=== PATIENT | female | born 1980 | race Caucasian/White ===

== ENCOUNTER → 2020-12-05 10:06 | Outpatient (BNVA) | payer OTHER, SELFPAY | PROVIDERS: Family Provider Nurse Practitioner Family; PCP Nurse Practitioner Family; Visit Provider Nurse Practitioner Family | DX: N39.0 Urinary tract infection, site not specified (principal); R31.9 Hematuria, unspecified; Z68.38 Body mass index [BMI] 38.0-38.9, adult | CPT/HCPCS: 81000 ==

== ENCOUNTER 2023-09-17 20:57 | Emergency (ER) | payer SELFPAY ==
[2023-09-17 21:01] VITALS: BP 127/85; PULSE 81; RESP 16; TEMP 36.6; O2SAT 97
--- NOTE | 2023-09-17 21:14 | CTR_ITS ---
PROCEDURE INFORMATION: Exam: CT Abdomen And Pelvis Without Contrast Exam date and time: 09/17/2023 10:48 PM Age: 43 years old Clinical indication: Abdominal pain; Right; Prior surgery; Surgery date: 6+ months; Surgery type: Appy; Patient HX: C/O RT flank pain TECHNIQUE: Imaging protocol: Computed tomography of the abdomen and pelvis without contrast. Radiation optimization: All CT scans at this facility use at least one of these dose optimization techniques: automated exposure control; mA and/or kV adjustment per patient size (includes targeted exams where dose is matched to clinical indication); or iterative reconstruction. REPORTING DATA: Count of CT and Cardiac NM exams in prior 12 months: This patient has received 0 known CTs and 0 known cardiac nuclear medicine studies in the 12 months prior to the current study. COMPARISON: No relevant prior studies available. RADIATION DOSE METRICS: Total DLP (mGy-cm): 1000.73 FINDINGS: Lungs: Left lower lobe atelectasis versus infiltrate. Liver: Hepatic steatosis. Gallbladder and bile ducts: Normal. No calcified stones. No ductal dilation. Pancreas: Normal. No ductal dilation. Spleen: Normal. No splenomegaly. Adrenal glands: Normal. No mass. Kidneys and ureters: Right proximal ureter 13 mm calculus with severe hydronephrosis and hydroureter with perinephric edema, please correlate for pyelonephritis. Stomach and bowel: Unremarkable. No obstruction. No mucosal thickening. Appendix: No evidence of appendicitis. Intraperitoneal space: Unremarkable. No free air. No significant fluid collection. Vasculature: Unremarkable. No abdominal aortic aneurysm. Lymph nodes: Unremarkable. No enlarged lymph nodes. Urinary bladder: Unremarkable as visualized. Reproductive: Fluid in the uterine cavity, likely related to menstrual status. Bones/joints: Unremarkable. No acute fracture. Soft tissues: Unremarkable. CT/CT kidney stone [id number] IMPRESSION: 1. Right proximal ureter 13 mm calculus with severe hydronephrosis and hydroureter with perinephric edema, please correlate for pyelonephritis. 2. Fluid in the uterine cavity, likely related to menstrual status. 3. Left lower lobe atelectasis versus infiltrate. 4. Hepatic steatosis.
[2023-09-17 21:34] LABS: Add Urine Microscopic? YES; Bilirubin Urine Neg (Negative); Blood Urine 2+ (Negative); Glucose Urine UA Norm (Normal); Ketones Urine Negative (Negative); Leukocyte Esterase Urine 2+ (Negative); Nitrate Urine Negative (Negative); Protein Urine Neg (Negative); Sulfosalicylic Acid Urine Negative (Negative); Urine Appearance Turbid (CLEAR); Urine Color Yellow (Yellow); Urobilinogen Urine Norm (Negative); pH Urine 8 (5-7)
[2023-09-17 21:35] LABS: WBC Urine 15-25 /hpf (0-5)
[2023-09-17 21:36] LABS: Add Urine Culture? No; Amorphous Sediment Urine 1+ /hpf; Bacteria Urine 2+ /hpf; Squamous Epithelial Cell Urine 15-25 /hpf (0-5)
[2023-09-17 21:46] LABS: Basophils # 0.1 10^3/uL (0.0-0.1); Basophils % 0.4 %; Eosinophils % 0.1 %; Hematocrit 39.6 % (36-47); Lymphocytes # 1.2 10^3/uL (0.8-4.8); Lymphocytes % 7.7 %; Mean Corpuscular HGB Conc 33.1 g/dL (30-55); Mean Corpuscular Hemoglobin 30.1 pg (27-33); Mean Platelet Volume 10.6 fL (7.4-10.4); Monocytes # 0.5 10^3/uL (0.2-0.9); Monocytes % 3.3 %; Neutrophils # 13.21 10^3/uL (1.8-7.7); Neutrophils % 88.2 %; Nucleated Red Blood Cells % 0 %; Platelet Count 293 10^3/cmm (157-399); Red Blood Count 4.35 10^6/uL (3.85-5.65); Red Cell Distribution Width 13.3 % (12.1-15.1); White Blood Count 14.98 10^3/uL (3.29-11.43)
[2023-09-17 21:58] LABS: HCG, Serum Qual Negative (Negative)
[2023-09-17 22:05] LABS: Alanine Aminotransferase 10 U/L (0-33); Alkaline Phosphatase 100 U/L (35-105); Anion Gap 16.9 (5-19); Aspartate Amino Transferase 15 U/L (0-32); Blood Urea Nitrogen 10 mg/dL (6-20); Calcium 9.1 mg/dL (8.5-10.5); Carbon Dioxide 22 mmol/L (22-29); Chloride 103 mmol/L (98-107); Globulin 3.3 g/dL (1.3-4.6); Glomerular Filtration Rate 54.2 mL/min (90-130); Glucose 136 mg/dL (65-115); Osmolality Calculated 285 mOsm/kg (285-295); Potassium 4.9 mmol/L (3.5-5.1); Sodium 137 mmol/L (136-145); Total Bilirubin 0.4 mg/dL (0.15-1.2); Total Protein 7.3 g/dL (6.6-8.7)
--- NOTE | 2023-09-17 22:25 | W.ED.FEMALGU ---
HPI - Female Genitourinary General: Chief complaint: Urogenital-Female Stated complaint: back pain Time Seen by Provider: 09/17/23 21:17 History of Present Illness: 43-year-old female with a history of renal stones comes in today for complaints of right flank pain. Patient reports pain started this afternoon around 4:00. Patient appears nontoxic. Patient appears in moderate pain. Patient denies any other chronic medical problems. Review of Systems General: Reports: 10 or more systems reviewed and unremarkable except in HPI and below : Reports: flank pain PFS ED PFSH: Social History (Updated 12/05/20 @ 10:10 by Tonya Mendosa LPN) Smoking and tobacco/nicotine status: current every day tobacco/nicotine user Physical Exam Const: COMMON NORMALS: alert HENMT: COMMON NORMALS: normocephalic HEAD & SCALP: normocephalic Neck/C-Spine: COMMON NORMALS: full ROM Resp: COMMON NORMALS: normal respiratory effort and clear to auscultation bilaterally AUSCULTATION: clear to auscultation bilaterally Cardio: COMMON NORMALS: regular rate and regular rhythm RATE: regular rate RHYTHM: regular rhythm GI: COMMON NORMALS: Soft to palpation PALPATION: Yes Soft to palpation Extremity: COMMON NORMALS: full ROM Neuro: SENSORIUM/ORIENTATION: Yes alert Skin: COMMON NORMALS: turgor normal GENERAL SKIN EXAM: turgor normal Course Vital Signs: Vital signs: Vital Signs Temperature 97.9 F 09/17/23 21:01 Pulse Rate 62 09/18/23 00:08 Respiratory Rate 15 09/17/23 22:40 Blood Pressure 116/66 09/18/23 00:08 Pulse Oximetry 96 09/18/23 00:08 Oxygen Delivery Me thod Room Air 09/18/23 00:08 MDM - Female Medical Decision Making 43-year-old female here with right flank pain and history of kidney stones. On exam abdomen soft with some tenderness in the right lower quadrant. CVA tenderness on the right side. Bowel sounds are present. Skin is warm and dry. Patient moves all extremities well. Vital signs are normal. Differential diagnosis includes not limited to renal calculi, renal colic, appendicitis, urinary tract infection, pyelonephritis. CBC showed some mild leukocytosis at 14,000. CMP was unremarkable. Urinalysis had white blood cells and red blood cells and large amount of skin cells in it. CT of the abdomen and pelvis noted a large 12 mm stone in the right mid ureter. Reviewed exam with patient recommendations for treatment follow-up with urologist and monitor for signs of infection. Patient reported understanding of care plan and need for follow-up. Patient was written a prescription for hydrocodone and ondansetron. Lab Data 09/17/23 21:29 09/17/23 21: Radiology Impressions Abdomen/Pelvis CT 09/17/23 21:14 IMPRESSION: 1. Right proximal ureter 13 mm calculus with severe hydronephrosis and hydroureter with perinephric edema, please correlate for pyelonephritis. 2. Fluid in the uterine cavity, likely related to menstrual status. 3. Left lower lobe atelectasis versus infiltrate. 4. Hepatic steatosis. Laboratory Results WBC 14.98 10^3/uL (3.29-11.43) H 09/17/23 21: RBC 4.35 10^6/uL (3.85-5.65) 09/17/23: Hgb 13.10 g/dL (11.27-16.99) 09/17/23 21: Hct 39.6 % (36-47) 09/17/23 21: MCV 91.0 fl (85-98) 09/17/23 21: MCH 30.1 pg (27-33) 09/17/23 21: MCHC 33.1 g/dL (30-55) 09/17/23: RDW 13.3 % (12.1-15.1) 09/17/23: Plt Count 293 10^3/cmm (157-399) 09/17/23 21: MPV 10.6 fL (7.4-10.4) H 09/17/23 21: Neut % (Auto) 88.2 % 09/17/23: Lymph % (Auto) 7.7 % 09/17/23: [place] % (Auto) 3.3 % 09/17/23 21: Eos % (Auto) 0.1 % 09/17/23: Baso % (Auto) 0.4 % 09/17/23: Neut # (Auto) 13.21 10^3/uL (1.8-7.7) H 09/17/23 21: Lymph # (Auto) 1.2 10^3/uL (0.8-4.8) 09/17/23 21: [place] # (Auto) 0.5 10^3/uL (0.2-0.9) 09/17/23 21: Eos # (Auto) 0.0 10^3/uL (0.0-0.8) 09/17/23: Baso # (Auto) 0.1 10^3/uL (0.0-0.1) 09/17/23 21: Nucleated RBC % (auto) 0 % 09/17/23: Nucleated RBCs # 0.0 /100WBC 09/17/23 21: Sodium 137 mmol/L (136-145) 09/17/23 21: Potassium 4.9 mmol/L (3.5-5.1) 09/17/23: Chloride 103 mmol/L (98-107) 09/17/23: Carbon Dioxide 22 mmol/L (22-29) 09/17/23: Anion Gap 16.9 (5-19) 09/17/23: BUN 10 mg/dL (6-20) 09/17/23: Creatinine 1.1 mg/dL (0.5-0.9) H 09/17/23: GFR Calculation 54.2 mL/min (90-130) L 09/17/23: Glucose 136 mg/dL (65-115) H 09/17/23: Calculated Osmolality 285 mOsm/kg (285-295) 09/17/23: Calcium 9.1 mg/dL (8.5-10.5) 09/17/23: Total Bilirubin 0.4 mg/dL (0.15-1.2) 09/17/23: AST 15 U/L (0-32) 09/17/23: ALT 10 U/L (0-33) 09/17/23 21: Alkaline Phosphatase 100 U/L (35-105) 09/17/23 21: Total Protein 7.3 g/dL (6.6-8.7) 09/17/23: Albumin 4.0 g/dL (3.5-5.2) 09/17/23 21:29 Globulin 3.3 g/dL (1.3-4.6) 09/17/23 21:29 HCG, Qual Negative (Negative) 09/17/23 21:29 Urine Color Yellow (Yellow) 09/17/23 21:16 Urine Appearance Turbid (CLEAR) A 09/17/23 21:16 Urine pH 8 (5-7) H 09/17/23 21:16 Ur Specific [place] 1.010 (1.005-1.030) 09/17/23 21:16 Urine Protein Neg (Negative) 09/17/23 21:16 Urine Glucose (UA) Norm (Normal) 09/17/23 21:16 Urine Ketones Negative (Negative) 09/17/23 21:16 Urine Blood 2+ (Negative) H 09/17/23 21:16 Urine Nitrate Negative (Negative) 09/17/23 21:16 Urine Bilirubin Neg (Negative) 09/17/23 21:16 Prot Sulfosalicylic Acd Negative (Negative) 09/17/23 21:16 Urine Urobilinogen Norm mg/dL (Negative) 09/17/23 21:16 Ur Leukocyte Esterase 2+ (Negative) H 09/17/23 21:16 Urine RBC 5-10 /hpf (0-2) H 09/17/23 21:16 Urine WBC 15-25 /hpf (0-5) H 09/17/23 21:16 Ur Squamous Epith Cells 15-25 /hpf (0-5) H 09/17/23 21:16 Amorphous Sediment 1+ /hpf 09/17/23 21:16 Urine Bacteria 2+ /hpf (NONE) H 09/17/23 21:16 All radiology interpretation(s) finalized by discharge Discharge Plan Discharge Patient Disposition: Home Clinical Impression: Calculus, ureter Condition: Stable Prescriptions: New hydrocodone-acetaminophen 5-325 mg tablet 1 tab PO Q6H PRN (Reason: pain) Qty: 12 0RF ondansetron HCl 4 mg tablet 4 mg PO Q8H PRN (Reason: nausea and vomiting) Qty: 12 0RF No Action ciprofloxacin HCl [Cipro] 500 mg tablet 500 mg PO BID 7 Days Qty: 14 0RF Discharge Orders: Discharge ED (Routine); Ordered 09/18/23 Ordered By: Samm Ching Discharge Diet: Usual diet Discharge Activity: Increase activity as tolerated Patient Instructions: Renal Colic (ED), Opioid Safety Activity Restrictions/Additional Instructions: Use medications as directed. Drink plenty of fluids. You will need to follow-up with a urologist for further treatment and evaluation. Case management was requested to assist with this follow-up appointment. Return to ER for worsening symptoms such as high fever greater than 100.4, or uncontrolled pain. Coding Level of Care Code ED [employer] Installer for Katharine Mead
[2023-09-17 22:37] VITALS: BP 130/88; PULSE 69; RESP 17; O2SAT 95
[2023-09-17] MEDS: ondansetron 2 mg/ML SDV 2 mL 4 MG IVP (22:37)
[2023-09-17] MEDS: ketorolac 30 mg/mL INJ 15 MG IVP (22:39)
[2023-09-17 22:40] VITALS: RESP 15
[2023-09-17] MEDS: morphine 4 mg/mL SDV 1 mL IVP (22:40)
[2023-09-17 23:30] VITALS: BP 108/74; PULSE 56; O2SAT 94
[2023-09-18 00:08] VITALS: BP 116/66; PULSE 62; O2SAT 96
[2023-09-18 00:38] VITALS: BP 116/75; PULSE 70; O2SAT 96
--- NOTE | 2023-09-19 11:56 | DCPLANNER ---
I called patient phone number of [phone] and this phone number is no longer in service. I called patients life partner at [phone]. He stated he was at work and not with Jacklyn. He gave me a new number of [phone]. I called this new number and I left a voicemail for her to contact us back to see where she would like her urology referral sent to. 09/19/23 at 1204.
--- NOTE | 2023-09-19 17:08 | DCPLANNER ---
I faxed patients chart to [facility] on 09/19/23 at 1068. Clinic to contact patient. Faxed to [phone]
== END 2023-09-18 00:39 | disposition home or self-care (01) ==
PROVIDERS: Emergency Provider Nurse Practitioner Family
DX: N13.2 Hydronephrosis with renal and ureteral calculous obstruction (principal); K76.0 Fatty (change of) liver, not elsewhere classified; Z72.0 Tobacco use
CPT/HCPCS: 36415; 74176; 80053; 81001; 84703; 85025; 96374; 96375; 99285; J1885; J2270; J2405